=== PATIENT | female | born 1975 ===

== ENCOUNTER 2017-06-15 08:15 | Day surgery (SDC) | payer OTHER ==
[2017-06-15 08:38] VITALS: BMI 26.4
[2017-06-15 08:56] VITALS: O2SAT 100
[2017-06-15] MEDS ORDERED: Propofol 10 mg/ml Inj (20 ML) ONE ×2 (10:31→11:02)
[2017-06-15] MEDS ORDERED: Simethicone 40 mg/0.6 ml Liquid (30 ml) ONE (10:52)
[2017-06-15 11:22] VITALS: TEMP 97.8
[2017-06-15 11:48] VITALS: PULSE 68
[2017-06-15 12:02] VITALS: BP 132/80; RESP 12
== END 2017-06-15 12:25 | disposition home or self-care (01) ==
LOC: C.ENDO 08:15
PROVIDERS: ATTEND Internal Medicine Gastroenterology
DX: K29.70 Gastritis, unspecified, without bleeding (principal); D64.9 Anemia, unspecified; K44.9 Diaphragmatic hernia without obstruction or gangrene; K52.9 Noninfective gastroenteritis and colitis, unspecified; K64.8 Other hemorrhoids
CPT/HCPCS: 43239; 45380; 84703; 88305; 88313; 88342; J2001; J2704

== ENCOUNTER 2018-04-04 09:15 | Emergency (ER) | payer MEDICAID, OTHER ==
[2018-04-04 09:15] VITALS: BMI 26.4
--- NOTE | 2018-04-04 10:12 | C.PDOC ---
History Of Present Illness 42 year female presents to the ED for evaluation of fever, sore throat, cough, congestion, generalized body aches and malaise for the past 3 to 4 days. She reports sick contacts at home. Additionally complains of nausea and decreased appetite. She tried taking Theraflu and Motrin OTC without relief. Denies any chest pain, SOB, headache, neck pain, abdominal pain, dysruia, or flu shot this year. HPI: Influenza Time Seen by Provider: 04/04/18 09:30 Chief Complaint: Flu-like Symptoms History Per: Patient Exam Limitations: no limitations Have you had recent travel within the past 21 days to any of the following countries: [place], [place], [place] or [place]?: No Symptoms include: fever (subjective. ), bodyaches (generalized. ), sore throat, nasal congestion Sick Contacts (Context): Family Member(s) Hx Influenza Vaccination: No Past Medical History Reviewed: Historical Data, Nursing Documentation, Vital Signs Vital Signs: Last Vital Signs Temp 103 F H 04/04/18 09:25 Pulse 112 H 04/04/18 09:25 Resp 16 04/04/18 09:25 BP 139/79 04/04/18 09:25 Pulse Ox 96 04/04/18 09:25 - Medical History PMH: Hypothyroidism Family History: States: Unknown Family Hx - Social History Hx Alcohol Use: No Hx Substance Use: No - Immunization History Hx Tetanus Toxoid Vaccination: No Hx Influenza Vaccination: No Hx Pneumococcal Vaccination: No Review Of Systems Constitutional: Positive for: Fever (subjective. ), Weakness (generalized. ), Malaise ENT: Positive for: Nose Congestion, Throat Pain (sore. ) Cardiovascular: Negative for: Chest Pain Respiratory: Positive for: Cough. Negative for: Shortness of Breath Gastrointestinal: Negative for: Abdominal Pain Genitourinary: Negative for: Dysuria Neurological: Negative for: Headache Physical Exam - Physical Exam Appears: No Acute Distress Skin: Normal Color, Warm, Dry Head: Atraumatic, Normacephalic Eye(s): bilateral: Normal Inspection Ear(s): Bilateral: Normal Nose: Normal, No Discharge Oral Mucosa: Moist Throat: Normal, No Erythema, No Exudate Neck: Normal ROM, Supple Chest: Symmetrical Cardiovascular: Rhythm Regular, No Murmur Respiratory: Normal Breath Sounds, No Rales, No Rhonchi, No Wheezing Gastrointestinal/Abdominal: Normal Exam, Soft, No Tenderness Extremity: Bilateral: Atraumatic, Normal Color And Temperature, Normal ROM Neurological/Psych: Oriented x3, Normal Speech, Normal Cognition Gait: Steady Medical Decision Making Medical Decision Making: Patient with multi-symptom complaints and acute onset of fever this is likely influenza or other viral illness given this time of season when Influenza is epidemic. Patient has not been vaccinated and is out of time frame for antiviral medication. At this time there is no clinical concern for dehydration, meningit is, pneumonia, or sepsis. Motrin given for fever. Recommend supportive treatment and rest as virus will self resolve. Patient given Rx and advised to follow up. - ECG O2 Sat by Pulse Oximetry: 96 (RA) Pulse Ox Interpretation: Normal Disposition Counseled Patient/Family Regarding: Diagnosis, Need For Followup, Rx Given - Disposition Referrals: Miley Carranza MD [Staff Provider] - Disposition: HOME/ ROUTINE Disposition Time: 10:12 Condition: GOOD Additional Instructions: You have viral infection, which can take 7 days to resolve. Take Tylenol or Motrin alternating every 4-6 hours for Fever 100.4F or higher. Rest and drink plenty of fluids. Try taking over the counter antihistamine (Claritin, Nora, Zyrtec), Decongestant or Cough medicine (Mucinex) as needed every 6-8 hours. Follow up with your primary medical doctor or clinic in 1 week for further evaluation. Prescriptions: Ondansetron ODT [Zofran ODT] 1 odt PO BID PRN #6 odt PRN Reason: Nausea/Vomiting Promethazine DM [Phenergan DM Syrup] 10 ml PO Q8 PRN #300 ml PRN Reason: Cough Instructions: Flu, Adult (DC) Forms: Digital Message Display (Erit[place]an) - POA Present On Arrival: None - Clinical Impression Clinical Impression: Influenza - PA / MOSAIC TECHNICIAN / Resident Statement MD/DO has reviewed & agrees with the documentation as recorded. - Scribe Statement The provider has reviewed the documentation as recorded by the Scribe (Katlyn Ortiz) All medical record entries made by the Scribe were at my direction and personally dictated by me. I have reviewed the chart and agree that the record accurately reflects my personal performance of the history, physical exam, medical decision making, and the department course for this patient. I have also personally directed, reviewed, and agree with the discharge instructions and disposition.
[2018-04-04 10:41] VITALS: BP 121/79; PULSE 84; RESP 14; TEMP 101.1
[2018-04-04 11:01] VITALS: O2SAT 96
== END 2018-04-04 10:55 | disposition home or self-care (01) ==
LOC: C.ER 09:15
DX: J11.1 Influenza due to unidentified influenza virus with other respiratory manifestations (principal)